=== PATIENT | male | born 1950 | race Caucasian/White ===

== ENCOUNTER 2024-06-05 12:45 | Outpatient (CLI) | payer OTHER, SELFPAY | END 2024-06-05 12:46 | disposition home or self-care (01) | LOC: RAD 12:49 | PROVIDERS: PCP Chiropractor; Visit Provider Chiropractor | DX: I25.10 Atherosclerotic heart disease of native coronary artery without angina pectoris (principal); I35.1 Nonrheumatic aortic (valve) insufficiency; I34.0 Nonrheumatic mitral (valve) insufficiency; I35.0 Nonrheumatic aortic (valve) stenosis | CPT/HCPCS: 93306 ==